=== PATIENT | female | born 1995 | race Caucasian/White ===

== ENCOUNTER 2018-08-20 18:56 | Emergency (ER) | payer OTHER ==
[~2018-08-20] VITALS: Ht 167.6 cm; Wt 77.6 kg
[2018-08-20 18:58] VITALS: BP 126/85
[2018-08-20] MEDS ORDERED: CARBAMIDE PEROXIDE EAR DROPS 6.5%, 15ML ONE (19:10)
[2018-08-20] MEDS ORDERED: DEXAMETHASONE 4 MG TABLET ONE (19:29)
[2018-08-20] MEDS ORDERED: DEXAMETHASONE 4 MG TABLET PO ONE (19:30)
[2018-08-20] MEDS ORDERED: CARBAMIDE PEROXIDE EAR DROPS 6.5%, 15ML RIGHT EAR ONE (19:30)
--- NOTE | 2018-08-20 22:49 | NUR ---
DC EDUCATION PROVIDED, PT DEMONSTRATE UNDERSTANDING. PT AMBULATED STEADILY TO DC WITH RN
== END 2018-08-20 22:50 | disposition home or self-care (01) ==
LOC: EDSEX → MERGE 19:20 → ED 19:20
DX: T16.1XXA Foreign body in right ear, initial encounter (principal); H61.21 Impacted cerumen, right ear; J02.0 Streptococcal pharyngitis; X58.XXXA Exposure to other specified factors, initial encounter; Y93.89 Activity, other specified; Y92.89 Other specified places as the place of occurrence of the external cause; Y99.8 Other external cause status
CPT/HCPCS: 69200; 87081; 87880; 99284